=== PATIENT | female | born 1945 | race Caucasian/White ===

== ENCOUNTER 2016-11-08 15:38 | Emergency (ER) | payer MEDICARE, OTHER ==
[~2016-11-08] VITALS: Ht 170.2 cm; Wt 86.4 kg
[~2016-11-08 15:38] MED LIST: ACET-2404 PO; CHOL100045 PO; LEVO100T97 PO; LOSA100T3 PO
[2016-11-08 15:46] VITALS: BP 149/93; PULSE 56; RESP 16; O2SAT 97
--- NOTE | 2016-11-08 16:27 | DRSVH ---
PROCEDURE: X-RAY PELVIS W/LAT HIP (RT) ([id number]) INDICATIONS: pain post fall TECHNIQUE: AP pelvis with lateral view(s) of the right hip. COMPARISON: None. FINDINGS: Bones: No fractures or dislocations. Pelvic ring appears intact. No suspicious bony lesions. Soft tissues: The visualized bowel gas pattern is normal. No suspicious soft tissue calcifications. IMPRESSION: No trauma films, source of current pain after fall is not seen. Mild symmetric hip joint osteoarthritis. Dictated by: Isidro Lozada M.D. on 11/08/2016 at 16:25 Approved by: Isidro Lozada M.D. on 11/08/2016 at 16:26
--- NOTE | 2016-11-08 18:00 | ED.REPORT ---
HPI-Extremity Problem Lower Date of Service Nov 08, 2016 ED Provider: Jennifer Velez MD 71 yo woman presents with 10 days of Right hip pain. It is tender in the groin at the inguinal ligament. She can walk on it. She'd bee going to PT and the PT was concerned with a fracture and declined additional treatment until evaluated further. Nursing Notes Stated Complaint: POSSIBLE HIP FRACTURE, SENT BY [facility] OFFICE Chief Complaint: Extremity Trauma Allergies: Coded Allergies: No Known Allergies (Unverified Allergy, Unknown, 11/08/16) Scheduled Cholecalciferol (Vitamin D3) (Vitamin D) 1,000 Unit Capsule 1,000 UNIT PO DAILY Levothyroxine (Synthroid) 100 Mcg Tablet 100 MCG PO DAILY Losartan Potassium (Cozaar) 100 Mg Tablet 100 MG PO DAILY Scheduled PRN Acetaminophen (Tylenol Extra Strength) 500 Mg Tablet 500 MG PO PRN PRN PRN For Pain General Time Seen by MD: 17:47 Chief Complaint Hip injury right Hx Obtained From: Patient Arrived By: Walk-in Onset Occurred: More than a week ago... Location: : Hip right (has been having pain in Left knee, favoring Right hip. Stepped off a curb wrong and hurt the hip): Knee left Pertinent Negative: Pt denies other symptoms Exacerbated by: Range of motion Relieved by: Rest Past Medical History Past Medical History Reports: Hypertension Reports: Thyroid disease Past Surgical History none Smoking History Never Smoker Social History Alcohol Use: "Social" Review of Systems Review of Systems Note: no fever, chills, edema, rashes or adenopathy tenderness with walking, but able to walk and bear full weight since the time of injury remainder is unremarkable Physical Exam Initial Vital Signs Vital Signs (First) Date Time Temp Pulse Resp B/P Pulse Ox O2 Delivery O2 Flow Rate FiO2 11/08/16 15:46 36.2 56 16 149/93 97 Room Air Initial VS: Reviewed General/Constitutional: Well-developed, Well-nourished Respiratory: No respiratory distress Abdomen / GI: Soft Back: No CVA tenderness Lymphatic: No lymphadenopathy (in the Right groin) Upper Extremities: Vascular intact, Neuro intact, No swelling, No tenderness Skin: Warm, Dry (no rashes over the area of tenderness) Neurologic: Alert, Oriented, Nonfocal Additional Physical Exam: mildly antalgic gait tender over the inguinal ligament NOT tender with passive ROM of the right hip Discharge & Departure Impression: Primary Impression: Hip pain Disposition: Home Discharge Condition Condition: Improved Patient Instructions: Hip Pain (ED) Additional Instructions: I'm so sorry you waited for so long in our department today. The good news is that there is no fracture. Your inguinal ligament is quite tender and I suspect you simply pulled this with the "off step". The remainder of your exam was reassuring. Your pelvic and hip xrays do not show and fractures in the hip or the pelvic ring. 10 days after an injury there should be evidence of healing with some of the smaller fractures we might have missed in the first day or two. You can continue to use the tramadol you have along with tylenol. Resuming physical therapy will be of benefit. Enjoy your dinner out this evening! Jennifer Velez MD Nov 08, 2016 18:00
== END 2016-11-08 17:59 | disposition home or self-care (01) ==
LOC: SED 15:38
DX: M25.551 Pain in right hip (principal); I10 Essential (primary) hypertension; E07.9 Disorder of thyroid, unspecified